=== PATIENT | female | born 1990 | race Two or more races ===

== ENCOUNTER 2018-08-17 08:12 | Emergency (ER) | payer MEDICAID ==
[~2018-08-17] VITALS: Ht 157.5 cm; Wt 92.5 kg
[2018-08-17 08:40] VITALS: BP 130/81
== END 2018-08-17 08:41 | disposition left against medical advice (07) ==
LOC: ER 08:12
DX: M54.5 Low back pain (principal); Z53.21 Procedure and treatment not carried out due to patient leaving prior to being seen by health care provider

== ENCOUNTER 2019-02-27 18:17 | Observation (INO) | payer MEDICAID | END 2019-02-27 19:44 | disposition home or self-care (01) | DRG 566 | LOC: LDRP 18:17 | PROVIDERS: ADMIT Obstetrics & Gynecology; ATTEND Obstetrics & Gynecology | DX: O42.92 Full-term premature rupture of membranes, unspecified as to length of time between rupture and onset of labor (principal); O47.03 False labor before 37 completed weeks of gestation, third trimester; Z3A.35 35 weeks gestation of pregnancy | CPT/HCPCS: 59025; 81002; 84112; G0378 ==

== ENCOUNTER 2019-03-14 14:10 | Observation (INO) | payer MEDICAID ==
[2019-03-14] MEDS ORDERED: PRENTAB40 PO (14:58)
== END 2019-03-14 15:47 | disposition home or self-care (01) | DRG 566 ==
LOC: LDRP 14:10
PROVIDERS: ADMIT Obstetrics & Gynecology; ATTEND Obstetrics & Gynecology
DX: O62.9 Abnormality of forces of labor, unspecified (principal); O26.893 Other specified pregnancy related conditions, third trimester; R11.0 Nausea; Z3A.37 37 weeks gestation of pregnancy
CPT/HCPCS: 59025; 81002; 84112; G0378

== ENCOUNTER 2019-03-27 11:05 | Observation (INO) | payer MEDICAID ==
[~2019-03-27 11:05] MED LIST: PRENTAB40 PO
[2019-03-27 12:03] LABS: Basophils # (auto) 0 uL; Eosinophils # (auto) 0.1 uL; Eosinophils % (auto) 0.7 % (0.0-7.0); Mean Corpuscular Hemoglobin 24.9 pg (28.0-32.0); Monocytes # (auto) 0.3 uL
[2019-03-27 12:05] LABS: Basophils % (auto) 0.2 % (0.0-2.0); Lymphocytes # (auto) 1.5 uL; Lymphocytes % (auto) 17.9 % (10.0-50.0); Mean Corpuscular Hgb Conc. 32.3 g/dL (32.0-36.0); Mean Corpuscular Volume 77.3 fL (80.0-100.0); Monocytes % (auto) 3.3 % (0.0-12.0); Neutrophils # (auto) 6.5 uL; Neutrophils % (auto) 77.9 % (37.0-80.0); Platelet Count (auto) 305 10^3/uL (140-450); Red Cell Distribution Width 15.4 % (11.8-14.3); White Blood Cell 8.3 10^3/uL (4.4-10.8)
[2019-03-27 12:38] LABS: Alcohol, Urine < 3.0 mg/dL (0-5); Amphetamine Screen, Urine NEGATIVE (NEGATIVE); Barbiturate Scree,Urine NEGATIVE (NEGATIVE); Benzodiazephine Screen, Urine NEGATIVE (NEGATIVE); Cocaine Screen, Urine NEGATIVE (NEGATIVE); Opiate Scree,Urine NEGATIVE (NEGATIVE); Phencyclidine Screen, Urine NEGATIVE (NEGATIVE)
[2019-03-27 12:41] LABS: Cannabinoid Screen, Urine POSITIVE (NEGATIVE)
[2019-03-28 06:06] LABS: RPR Non Reactive (Non Reactive)
== END 2019-03-27 12:10 | disposition home or self-care (01) | DRG 566 ==
LOC: LDRP 11:05
PROVIDERS: ADMIT Specialist; ATTEND Specialist
DX: O99.810 Abnormal glucose complicating pregnancy (principal); O99.323 Drug use complicating pregnancy, third trimester; F19.10 Other psychoactive substance abuse, uncomplicated; Z91.19 Patient's noncompliance with other medical treatment and regimen; Z3A.39 39 weeks gestation of pregnancy
CPT/HCPCS: 36415; 59025; 76818; 80307; 81002; 83036; 84112; 85025; 86592; G0378

== ENCOUNTER 2019-03-31 10:04 | Observation (INO) | payer MEDICAID | END 2019-03-31 12:00 | disposition home or self-care (01) | DRG 566 | LOC: LDRP 10:04 | PROVIDERS: ADMIT Obstetrics & Gynecology; ATTEND Obstetrics & Gynecology | DX: O36.63X0 Maternal care for excessive fetal growth, third trimester, not applicable or unspecified (principal); E66.01 Morbid (severe) obesity due to excess calories; O48.0 Post-term pregnancy; O99.213 Obesity complicating pregnancy, third trimester; Z91.19 Patient's noncompliance with other medical treatment and regimen; Z3A.40 40 weeks gestation of pregnancy | CPT/HCPCS: 59025; 76815; 76818; 81002; G0378 ==

== ENCOUNTER 2019-04-01 09:05 | Inpatient (IN) | payer MEDICAID ==
[2019-04-01] VITALS (12 sets, daily range): BP systolic 119–149; BP diastolic 64–96
[~2019-04-01] VITALS: Ht 157.5 cm; Wt 117.9 kg
[2019-04-01] MEDS ORDERED: MORPHINE SULF INJ 2 MG/ML SYRINGE 1ML IV PRN (09:45)
[2019-04-01] MEDS ORDERED: NITROGLYCERIN 0.4 MG SL TAB SL PRN (09:45)
[2019-04-01 10:35] LABS: Urine Bacteria FEW /hpf (None Seen); Urine Blood Negative /uL (Negative); Urine Specific Gravity 1.018 (1.001-1.035); Urine WBC 14 /hpf (0 - 5)
[2019-04-01 10:41] LABS: Basophils # (auto) 0 uL; Lymphocytes # (auto) 1.8 uL; Monocytes # (auto) 0.4 uL
[2019-04-01 10:44] LABS: Basophils % (auto) 0.2 % (0.0-2.0); Eosinophils # (auto) 0 uL; Eosinophils % (auto) 0.5 % (0.0-7.0); Hematocrit 32.9 % (36.0-46.0); Lymphocytes % (auto) 20.6 % (10.0-50.0); Mean Corpuscular Hemoglobin 25.5 pg (28.0-32.0); Mean Corpuscular Hgb Conc. 33.5 g/dL (32.0-36.0); Monocytes % (auto) 4.3 % (0.0-12.0); Neutrophils # (auto) 6.3 uL; Neutrophils % (auto) 74.4 % (37.0-80.0); Platelet Count (auto) 304 10^3/uL (140-450); Red Blood Cells 4.33 10^6/uL (4.0-5.20); Red Cell Distribution Width 15.3 % (11.8-14.3); White Blood Cell 8.5 10^3/uL (4.4-10.8)
[2019-04-01 10:47] LABS: INR 0.99 (0.9-1.15); Partial Thromboplastin Time 28.7 sec (23.64-32.05)
[2019-04-01 10:51] LABS: Calcium 8.2 mg/dL (8.5-10.1)
[2019-04-01 10:55] LABS: Albumin 2.3 g/dL (3.4-5.0); BUN/Creatinine Ratio 15.2
[2019-04-01 10:57] LABS: Bilirubin, Total 0.3 mg/dL (0.2-1.0); Total Protein 6.2 g/dL (6.4-8.2)
[2019-04-01] MEDS: LACTATED RINGER'S 1,000 ML IV SCH ×2 (12:30→22:14)
[2019-04-01 12:55] LABS: Alcohol, Urine < 3.0 mg/dL (0-5); Amphetamine Screen, Urine NEGATIVE (NEGATIVE); Barbiturate Scree,Urine NEGATIVE (NEGATIVE); Benzodiazephine Screen, Urine NEGATIVE (NEGATIVE); Cannabinoid Screen, Urine NEGATIVE (NEGATIVE); Cocaine Screen, Urine NEGATIVE (NEGATIVE); Opiate Scree,Urine NEGATIVE (NEGATIVE); Phencyclidine Screen, Urine NEGATIVE (NEGATIVE)
[2019-04-01] MEDS ORDERED: ONDANSETRON HCL 4 MG/2 ML VIAL IV PRN ×2 (13:45→14:45)
[2019-04-01] MEDS ORDERED: ceFAZolin 1GM/50ML 50 ML IV SCH (13:45)
[2019-04-01] MEDS ORDERED: fentaNYL CITRATE 100 MCG/2 ML VL ONE (13:50)
[2019-04-01] MEDS ORDERED: ePHEDrine SULFATE 50 MG/ML AMP IV PRN (14:45)
[2019-04-01] MEDS ORDERED: hydrALAZINE HCL 20 MG/ML VL IV PRN (14:45)
[2019-04-01] MEDS ORDERED: HYDROmorphone HCL 2 MG/ML VL IV PRN (14:45)
--- NOTE | 2019-04-01 16:05 | NUR ---
Post Op for LDRP: Received patient from PACU via bed to room 108 A. Patient A/A/Ox4, abdominal binder and bilateral SCD's are in place, IV fluids placed on pump and infusing per order, incisional site dressing clean/dry/intact and Lazo Catheter to gravity draining clear yellow urine. Incentive Spirometer at bedside and instruction on proper use with return demonstration done by patient.
--- NOTE | 2019-04-01 16:30 | NUR ---
Teaching: Reviewed information in [facility] [employer] booklet with patient. Discussed benefits of and risks associated with not . Discussed different positions, proper latch, feeding cues, and baby-led . Provided information of medication side effects related to . All questions and concerns addressed at this time. Patient verbalized understanding of information.
[2019-04-01] MEDS: MORPHINE SULFATE 4 MG/ML SYR/VIAL IV PRN ×2 (17:41→22:11)
[2019-04-01] MEDS: LACT. RINGERS/OXYTOCIN 20UNITS 1,000 ML IV SCH ×2 (17:46→20:22)
[2019-04-01] MEDS ORDERED: ACETAMINOPHEN IV 1000 MG/100ML (10MG/ML) IV ONE (19:00)
--- NOTE | 2019-04-01 19:00 | NUR ---
Opening Shift Note Patient A/A/Ox4, Reports pain 8/10, pain medication was just given not due at this time. Abdominal binder in place, incisional site dressing clean/dry/intact no new drainage noted at this time. Bilateral SCD's are in place, IV fluids placed on pump and infusing per order. Lazo Catheter to gravity draining clear yellow urine. Incentive Spirometer at bedside. Instructed on POC and to call for assist PRN, will continue to monitor for changes PRN.
[2019-04-01] MEDS ORDERED: ACETAMINOPHEN IV 100 ML IV ONE (19:31)
[2019-04-01 19:46] LABS: Basophils # (auto) 0 uL; Basophils % (auto) 0.3 % (0.0-2.0); Eosinophils # (auto) 0 uL; Eosinophils % (auto) 0.2 % (0.0-7.0); Red Blood Cells 4.39 10^6/uL (4.0-5.20); Red Cell Distribution Width 15.1 % (11.8-14.3)
[2019-04-01 19:51] LABS: Hematocrit 33.7 % (36.0-46.0); Hemoglobin 10.9 g/dL (12.2-16.2); Lymphocytes # (auto) 1.7 uL; Lymphocytes % (auto) 13.6 % (10.0-50.0); Mean Corpuscular Hemoglobin 24.9 pg (28.0-32.0); Mean Corpuscular Hgb Conc. 32.4 g/dL (32.0-36.0); Mean Corpuscular Volume 76.8 fL (80.0-100.0); Monocytes # (auto) 0.4 uL; Monocytes % (auto) 3.4 % (0.0-12.0); Neutrophils # (auto) 10.3 uL; Neutrophils % (auto) 82.5 % (37.0-80.0); Platelet Count (auto) 308 10^3/uL (140-450); White Blood Cell 12.5 10^3/uL (4.4-10.8)
[2019-04-01] MEDS: ceFAZolin 1GM/50ML 50 ML IV SCH (22:04)
--- NOTE | 2019-04-01 23:54 | NUR ---
Pain Call placed to Je Bedolla regarding patient crying in bed despite recent pain medication given, at [address] and 2210 morphine. Patient not tolerating pain requesting additional pain medication. Verbalized understanding, orders received to give once 0.5 mg of Dilaudid IVP.
[2019-04-02] VITALS (10 sets, daily range): BP systolic 106–143; BP diastolic 66–89
[2019-04-02] MEDS ORDERED: HYDROmorphone HCL 2 MG/ML VL IV ONE
[2019-04-02] MEDS: LACTATED RINGER'S 1,000 ML IV SCH ×3 (01:45→17:21)
[2019-04-02] MEDS: MORPHINE SULFATE 4 MG/ML SYR/VIAL IV PRN ×2 (02:18→05:52)
[2019-04-02] MEDS: LACT. RINGERS/OXYTOCIN 20UNITS 1,000 ML IV SCH (03:02)
--- NOTE | 2019-04-02 03:45 | NUR ---
Ambulation: Pericare and teaching provided to patient, gown and pad changed. Patient OOB with standby assistance by two RN's. Patient ambulated to bedside chair steady gait. Complete bed linen changed. Patient remains in chair no S/S distress noted.
--- NOTE | 2019-04-02 03:53 | NUR ---
Spoke with Je Bedolla CNM regarding trending Urine output to Lazo catheter: 30-45 ml/hr the past few hours. Patient on LR at 125mls/hr. Verbalized understanding orders received to Bolus 300ml.
[2019-04-02 05:06] LABS: RPR Non Reactive (Non Reactive)
[2019-04-02] MEDS: ceFAZolin 1GM/50ML 50 ML IV SCH ×2 (05:53→14:40)
[2019-04-02] MEDS ORDERED: HYDROmorphone HCL 2 MG/ML VL IV PRN (06:30)
[2019-04-02] MEDS ORDERED: ACETAMINOPHEN IV 1000 MG/100ML (10MG/ML) IV ONE (08:15)
[2019-04-02 08:24] LABS: Basophils # (auto) 0 uL; Basophils % (auto) 0.2 % (0.0-2.0); Eosinophils # (auto) 0 uL; Eosinophils % (auto) 0.2 % (0.0-7.0); Hemoglobin 10.6 g/dL (12.2-16.2); Lymphocytes # (auto) 1.1 uL; Monocytes # (auto) 0.4 uL; Neutrophils % (auto) 83.9 % (37.0-80.0)
[2019-04-02 08:27] LABS: Hematocrit 32.4 % (36.0-46.0); Lymphocytes % (auto) 11.1 % (10.0-50.0); Mean Corpuscular Hgb Conc. 32.8 g/dL (32.0-36.0); Mean Corpuscular Volume 76.1 fL (80.0-100.0); Monocytes % (auto) 4.6 % (0.0-12.0); Neutrophils # (auto) 8.1 uL; Platelet Count (auto) 288 10^3/uL (140-450); Red Blood Cells 4.26 10^6/uL (4.0-5.20); Red Cell Distribution Width 15.1 % (11.8-14.3); White Blood Cell 9.6 10^3/uL (4.4-10.8)
[2019-04-02] MEDS ORDERED: HYDROcodone-ACET 5/325MG TAB PO PRN (08:30)
[2019-04-02] MEDS ORDERED: BISACODYL 10 MG RECT SUPP PR PRN (08:30)
[2019-04-02] MEDS ORDERED: ACETAMINOPHEN IV 100 ML IV ONE (09:35)
--- NOTE | 2019-04-02 10:00 | NUR ---
Ambulation: Patient OOB with assistance by RN and hydrologic engineer. Patient ambulated to bathroom with assistance from this RN and Muriel Marinelli, hydrologic engineer. Patient able to void 300 ml, passes BM x 1. Pericare teaching provided to pt, pt unable to return demonstration at this time. Pt states "I can't reach myself to clean." Clean gown provided and bed linen changed. Patient ambulated back to bed with assistance from RN and hydrologic engineer, and assisted pt back into bed, pt states "I can't lift my legs up" Pt positioned to comfort with pillows x 3.
[2019-04-02] MEDS: DOCUSATE CALCIUM 240 MG CAP PO SCH (10:07)
[2019-04-02] MEDS: FERROUS SULFATE 325 MG TAB PO SCH ×2 (10:07→21:44)
[2019-04-02] MEDS: DOCUSATE SOD 100 MG CAP PO SCH ×2 (10:07→21:45)
[2019-04-02] MEDS ORDERED: SIMETHICONE 80 MG CHEWABLE TABLET PO SCH (12:00)
[2019-04-02] MEDS: HYDROcodone-ACET 5/325MG TAB PO PRN ×3 (12:56→22:18)
--- NOTE | 2019-04-02 15:30 | NUR ---
Pt pulls emergency call light Pt up to bathroom, pt pulls emergency light states "I just can't wipe myself in the back. It just hurts too much." Assisted pt to clean herself, provided standby assistance to pt to get back in bed. Educated pt regarding the importance of ambulation, IS use and getting up out of bed more frequently to care for herself and her . Pt verbalizes understanding of teaching.
[2019-04-02] MEDS: IBUPROFEN 800 MG TAB PO PRN (15:47)
--- NOTE | 2019-04-02 21:03 | NUR ---
IV Removal IV right wrist 18g discontinued with clean sterile technique, catheter fully intact. Pressure dressing applied to site. Patient tolerated well. Signed: 04/02/19 at 2315 by SN Janelle <Co-Signature Required> Co-Signed: 04/02/19 at 2315 by DEE SPARKS RN RN
[2019-04-02] MEDS: SIMETHICONE 80 MG CHEWABLE TABLET PO SCH (21:44)
[2019-04-03 02:50] VITALS: BP 109/71
[2019-04-03] MEDS: SIMETHICONE 80 MG CHEWABLE TABLET PO SCH ×4 (05:44→22:20)
[2019-04-03] MEDS: IBUPROFEN 800 MG TAB PO PRN ×3 (05:44→22:20)
--- NOTE | 2019-04-03 06:26 | NUR ---
Report given to Sai Chavez RN
[2019-04-03 06:45] VITALS: BP 125/76
[2019-04-03] MEDS: HYDROcodone-ACET 5/325MG TAB PO PRN ×2 (07:53→16:57)
[2019-04-03] MEDS: LACTATED RINGER'S 1,000 ML IV SCH (09:45)
[2019-04-03] MEDS: DOCUSATE CALCIUM 240 MG CAP PO SCH (10:00)
[2019-04-03] MEDS: FERROUS SULFATE 325 MG TAB PO SCH ×2 (10:00→22:20)
[2019-04-03] MEDS: DOCUSATE SOD 100 MG CAP PO SCH ×2 (10:00→22:19)
[2019-04-03 11:00] VITALS: BP 123/76
[2019-04-03] MEDS ORDERED: INFLUENZA QUAD 2019-2020 0.5ml SYRG IM ONE (13:45)
[2019-04-03] MEDS ORDERED: TETANUS-DIPTH-ACEL PERTUSSIS 0.5ML SYRG IM ONE (13:45)
[2019-04-03 15:00] VITALS: BP 125/81
[2019-04-03 18:47] VITALS: BP 130/84
[2019-04-03 23:00] VITALS: BP 132/88
[2019-04-04] MEDS: HYDROcodone-ACET 5/325MG TAB PO PRN (01:20)
[2019-04-04] MEDS: LACTATED RINGER'S 1,000 ML IV SCH (01:26)
[2019-04-04 03:00] VITALS: BP 103/61
[2019-04-04] MEDS: SIMETHICONE 80 MG CHEWABLE TABLET PO SCH (05:20)
[2019-04-04 07:00] VITALS: BP 131/83
--- NOTE | 2019-04-04 08:10 | NUR ---
Discharge: Discharge instructions given as ordered. Pt encouraged to follow up with GEOTECHNICAL FIELD TECHNICIAN as instructed. All questions and concerns addressed. Patient verbalized understanding. Medication reconciliation completed and copy given to patient. All required/requested vaccines given and copies of vaccinations given to patient. Patient encouraged to prepare to depart unit.
--- NOTE | 2019-04-04 08:40 | NUR ---
Discharge: Patient taken to vehicle via ambulation with all personal belongings, accompanied by staff and family member. No distress noted at time of departure, no adverse changes in status since initial assessment.
[2019-04-04 09:00] VITALS: BP 124/86
== END 2019-04-04 08:40 | disposition home or self-care (01) | DRG 540 ==
LOC: LDRP 09:05
PROVIDERS: ADMIT Obstetrics & Gynecology; ATTEND Obstetrics & Gynecology
PROC: 10D00Z1 Extraction of Products of Conception, Low, Open Approach (ICD-10-PCS; principal; 2019-04-01 13:50)
PROC: 3E0234Z Introduction of Serum, Toxoid and Vaccine into Muscle, Percutaneous Approach (ICD-10-PCS; 2019-04-03)
PROC: 3E02340 Introduction of Influenza Vaccine into Muscle, Percutaneous Approach (ICD-10-PCS; 2019-04-03)
DX: O69.81X0 Labor and delivery complicated by cord around neck, without compression, not applicable or unspecified (principal); E66.01 Morbid (severe) obesity due to excess calories; O36.63X0 Maternal care for excessive fetal growth, third trimester, not applicable or unspecified; Z37.0 Single live birth; Z23 Encounter for immunization; O99.214 Obesity complicating childbirth; Z3A.40 40 weeks gestation of pregnancy
CPT/HCPCS: 36415; 59025; 80053; 80307; 81001; 84112; 85025; 85610; 85730; 86592; 86850; 86900; 86901; 90472; 90715; 94760; 96361; 96366; 96372; 96375; G0378; J0131; J0690

== ENCOUNTER 2020-10-29 12:00 | Observation (INO) | payer MEDICAID | END 2020-10-29 13:00 | disposition home or self-care (01) | LOC: LDRP 12:00 | PROVIDERS: ADMIT Obstetrics & Gynecology; ATTEND Obstetrics & Gynecology | DX: O26.893 Other specified pregnancy related conditions, third trimester (principal); R42 Dizziness and giddiness; R06.02 Shortness of breath; O62.9 Abnormality of forces of labor, unspecified; O34.219 Maternal care for unspecified type scar from previous cesarean delivery; Z3A.38 38 weeks gestation of pregnancy | CPT/HCPCS: 59025; 81002; 94760; G0378 ==

== ENCOUNTER 2020-11-02 04:10 | Inpatient (IN) | payer MEDICAID ==
[~2020-11-02] VITALS: Ht 160 cm; Wt 118.0 kg
[2020-11-02] VITALS (17 sets, daily range): BP systolic 102–127; BP diastolic 49–80
[2020-11-02] MEDS ORDERED: ceFAZolin 1GM/50ML 50 ML IV ONE (04:15)
[2020-11-02] MEDS ORDERED: LACTATED RINGER'S 1,000 ML IV ONE (04:15)
[2020-11-02] MEDS ORDERED: LACTATED RINGER'S 1,000 ML IV SCH (04:15)
[2020-11-02 05:08] LABS: Eosinophils # (auto) 0.1 10 ^3/uL (0-0.8); Eosinophils % (auto) 0.8 % (0.0-7.0); Mean Corpuscular Hemoglobin 24.4 pg (28.0-32.0); Monocytes # (auto) 0.4 10 ^3/uL (0-1.3); Red Blood Cells 4.98 10^6/uL (4.0-5.20); White Blood Cell 11.3 10^3/uL (4.4-10.8)
[2020-11-02 05:10] LABS: Basophils # (auto) 0.1 10 ^3/uL (0-0.2); Basophils % (auto) 0.6 % (0.0-2.0); Hematocrit 37.8 % (36.0-46.0); Hemoglobin 12.1 g/dL (12.2-16.2); Lymphocytes # (auto) 2.3 10 ^3/uL (0.4-5.4); Lymphocytes % (auto) 20.4 % (10.0-50.0); Monocytes % (auto) 3.6 % (0.0-12.0); Neutrophils # (auto) 8.5 10 ^3/uL (1.6-8.6); Neutrophils % (auto) 74.6 % (37.0-80.0); Red Cell Distribution Width 15.7 % (11.8-14.3)
[2020-11-02 05:24] LABS: INR 0.97 (0.9-1.15); Partial Thromboplastin Time 26.8 sec (23.0-31.2)
[2020-11-02 05:25] LABS: Albumin 2.5 g/dL (3.4-5.0); Calcium 8.8 mg/dL (8.5-10.1); Potassium 3.8 mmol/L (3.5-5.1)
[2020-11-02 05:26] LABS: Amphetamine Screen, Urine NEGATIVE (NEGATIVE); Barbiturate Scree,Urine NEGATIVE (NEGATIVE); Benzodiazephine Screen, Urine NEGATIVE (NEGATIVE); Cannabinoid Screen, Urine POSITIVE (NEGATIVE); Cocaine Screen, Urine NEGATIVE (NEGATIVE); Opiate Scree,Urine NEGATIVE (NEGATIVE); Phencyclidine Screen, Urine NEGATIVE (NEGATIVE)
[2020-11-02 05:27] LABS: Urine Bacteria FEW /hpf (None Seen); Urine Blood TRACE /uL (Negative); Urine Hyaline Cast FEW /lpf (0 - 2); Urine Mucus FEW (None Seen); Urine Specific Gravity 1.019 (1.001-1.035); Urine WBC 31 /hpf (0 - 5); Urine WBC Clumps PRESENT /hpf (None Seen)
[2020-11-02 05:30] LABS: BUN/Creatinine Ratio 23.2; Bilirubin, Total 0.2 mg/dL (0.2-1.0); Total Protein 7.3 g/dL (6.4-8.2)
[2020-11-02] MEDS ORDERED: TETRACAINE 1% INJ 2 ML VIAL IJ ONE (07:20)
[2020-11-02] MEDS ORDERED: fentaNYL CITRATE 100 MCG/2 ML VL ONE (07:28)
[2020-11-02] MEDS ORDERED: MORPHINE SULF(PF) 0.5MG/ML 10ML VIAL ONE (07:28)
[2020-11-02] MEDS ORDERED: LACT. RINGERS/OXYTOCIN 20UNITS 1,000 ML IV ONE (07:45)
[2020-11-02] MEDS ORDERED: MORPHINE SULFATE 4 MG/ML SYR/VIAL IV PRN ×2 (07:45→09:45)
[2020-11-02] MEDS ORDERED: ONDANSETRON HCL 4 MG/2 ML VIAL IV PRN (07:45)
[2020-11-02] MEDS ORDERED: ONDANSETRON HCL 4 MG/2 ML VIAL ONE (08:26)
[2020-11-02] MEDS ORDERED: ePHEDrine SULFATE 50 MG/ML AMP ONE (08:26)
[2020-11-02] MEDS ORDERED: oxyTOCIN 10 UNIT/ML 10ML VIAL ONE (08:26)
[2020-11-02] MEDS ORDERED: ceFAZolin 1GM VL ONE (08:27)
[2020-11-02] MEDS ORDERED: NALOXONE HCL 0.4 MG/ML VIAL IV PRN (09:00)
[2020-11-02] MEDS ORDERED: HYDROmorphone HCL 2 MG/ML VL IV PRN ×2 (09:00→09:45)
[2020-11-02] MEDS ORDERED: NALBUPHINE HCL 10 MG/1ml INJECTION SUBCUT ONE (09:00)
[2020-11-02] MEDS ORDERED: diphenhdrAMINE HCL 50 MG/1 ML VL IV PRN (09:00)
[2020-11-02] MEDS ORDERED: DexAMETHasone SOD PHOS 10MG/1ML VIAL INJ IV PRN (09:00)
[2020-11-02] MEDS ORDERED: KETOROLAC TROMETH 30 MG/ML 1ML VIAL IV PRN (09:00)
[2020-11-02] MEDS ORDERED: ACETAMINOPHEN IV 1000 MG/100ML (10MG/ML) IV ONE (10:00)
[2020-11-02] MEDS: ONDANSETRON HCL 4 MG/2 ML VIAL IV PRN ×3 (11:36→20:21)
[2020-11-02] MEDS: ceFAZolin 1GM/50ML 50 ML IV SCH ×2 (15:34→22:58)
[2020-11-02] MEDS: LACTATED RINGER'S 1,000 ML IV SCH ×2 (15:36→22:58)
[2020-11-02 21:55] LABS: Basophils # (auto) 0 10 ^3/uL (0-0.2); Eosinophils # (auto) 0 10 ^3/uL (0-0.8); Lymphocytes % (auto) 13.5 % (10.0-50.0); Mean Corpuscular Hgb Conc. 32.4 g/dL (32.0-36.0); Monocytes # (auto) 0.3 10 ^3/uL (0-1.3)
[2020-11-02 21:57] LABS: Basophils % (auto) 0.1 % (0.0-2.0); Eosinophils % (auto) 0.4 % (0.0-7.0); Hematocrit 33.9 % (36.0-46.0); Lymphocytes # (auto) 1.5 10 ^3/uL (0.4-5.4); Mean Corpuscular Hemoglobin 24.5 pg (28.0-32.0); Mean Corpuscular Volume 75.7 fL (80.0-100.0); Monocytes % (auto) 2.9 % (0.0-12.0); Neutrophils % (auto) 83.1 % (37.0-80.0); Red Blood Cells 4.47 10^6/uL (4.0-5.20); Red Cell Distribution Width 15.8 % (11.8-14.3); White Blood Cell 10.8 10^3/uL (4.4-10.8)
[2020-11-03] VITALS (10 sets, daily range): BP systolic 105–120; BP diastolic 50–84
[2020-11-03] MEDS ORDERED: ACETAMINOPHEN IV 1000 MG/100ML (10MG/ML) IV ONE (04:30)
[2020-11-03 06:30] LABS: Basophils # (auto) 0 10 ^3/uL (0-0.2); Eosinophils # (auto) 0.1 10 ^3/uL (0-0.8); Eosinophils % (auto) 1.1 % (0.0-7.0); Hemoglobin 10.9 g/dL (12.2-16.2); Red Cell Distribution Width 15.5 % (11.8-14.3)
[2020-11-03 06:32] LABS: Basophils % (auto) 0.4 % (0.0-2.0); Lymphocytes # (auto) 1.5 10 ^3/uL (0.4-5.4); Lymphocytes % (auto) 15.1 % (10.0-50.0); Mean Corpuscular Hemoglobin 24.7 pg (28.0-32.0); Mean Corpuscular Hgb Conc. 33.1 g/dL (32.0-36.0); Mean Corpuscular Volume 74.7 fL (80.0-100.0); Monocytes # (auto) 0.4 10 ^3/uL (0-1.3); Monocytes % (auto) 4.2 % (0.0-12.0); Neutrophils # (auto) 7.7 10 ^3/uL (1.6-8.6); Neutrophils % (auto) 79.2 % (37.0-80.0); Red Blood Cells 4.42 10^6/uL (4.0-5.20); White Blood Cell 9.7 10^3/uL (4.4-10.8)
[2020-11-03 07:07] LABS: RPR Non Reactive (Non Reactive)
[2020-11-03] MEDS: ceFAZolin 1GM/50ML 50 ML IV SCH ×2 (08:13→16:12)
[2020-11-03] MEDS ORDERED: HYDROcodone-ACET 5/325MG TAB PO PRN (09:15)
[2020-11-03] MEDS ORDERED: BISACODYL 10 MG RECT SUPP PR PRN (09:15)
[2020-11-03] MEDS: HYDROcodone-ACET 5/325MG TAB PO PRN ×2 (11:15→19:37)
[2020-11-03] MEDS: DOCUSATE SOD 100 MG CAP PO SCH ×2 (11:15→22:01)
[2020-11-03] MEDS: SIMETHICONE 80 MG CHEWABLE TABLET PO SCH ×3 (11:16→23:07)
[2020-11-03] MEDS: IBUPROFEN 800 MG TAB PO PRN (16:15)
[2020-11-04] MEDS: ceFAZolin 1GM/50ML 50 ML IV SCH ×3 (00:16→17:24)
[2020-11-04 03:12] VITALS: BP 93/69
[2020-11-04] MEDS: IBUPROFEN 800 MG TAB PO PRN ×2 (03:22→15:56)
[2020-11-04 07:00] VITALS: BP 125/86
[2020-11-04] MEDS: SIMETHICONE 80 MG CHEWABLE TABLET PO SCH ×4 (09:02→22:04)
[2020-11-04] MEDS: DOCUSATE SOD 100 MG CAP PO SCH ×2 (09:49→22:03)
[2020-11-04 11:16] VITALS: BP 122/83
[2020-11-04 15:00] VITALS: BP 119/58
[2020-11-04] MEDS: HYDROcodone-ACET 5/325MG TAB PO PRN (15:56)
[2020-11-04 19:30] VITALS: BP 131/66
[2020-11-04] MEDS ORDERED: guaiFENesin-DM 100/10mg/5ml SYR PO PRN (20:15)
[2020-11-04] MEDS ORDERED: guaiFENesin-DM 100/10mg/5ml SYR ONE (20:23)
[2020-11-04 23:00] VITALS: BP 121/79
[2020-11-05] MEDS: ceFAZolin 1GM/50ML 50 ML IV SCH ×2 (01:14→09:50)
[2020-11-05] MEDS: HYDROcodone-ACET 5/325MG TAB PO PRN (02:37)
[2020-11-05 03:00] VITALS: BP 129/90
[2020-11-05] MEDS: SIMETHICONE 80 MG CHEWABLE TABLET PO SCH (06:00)
[2020-11-05 07:30] VITALS: BP 113/68
[2020-11-05] MEDS: IBUPROFEN 800 MG TAB PO PRN (08:06)
[2020-11-05] MEDS: DOCUSATE SOD 100 MG CAP PO SCH (09:50)
== END 2020-11-05 10:25 | disposition home or self-care (01) | DRG 540 ==
LOC: LDRP 04:10
PROVIDERS: ADMIT Obstetrics & Gynecology; ATTEND Obstetrics & Gynecology
PROC: 0UL70CZ Occlusion of Bilateral Fallopian Tubes with Extraluminal Device, Open Approach (ICD-10-PCS; 2020-11-02)
PROC: 10D00Z1 Extraction of Products of Conception, Low, Open Approach (ICD-10-PCS; principal; 2020-11-02 07:28)
DX: O34.211 Maternal care for low transverse scar from previous cesarean delivery (principal); E66.01 Morbid (severe) obesity due to excess calories; O99.214 Obesity complicating childbirth; N73.6 Female pelvic peritoneal adhesions (postinfective); O99.892 Other specified diseases and conditions complicating childbirth; Z30.2 Encounter for sterilization; Z37.0 Single live birth; Z3A.39 39 weeks gestation of pregnancy
CPT/HCPCS: 36415; 59025; 80053; 80307; 81001; 81002; 85025; 85610; 85730; 86592; 86850; 86900; 86901; 94760; 96360; 96361; 96365; 96366; 96374; G0378; J0131; J0690; J2405; J2590

== ENCOUNTER 2022-06-26 09:42 | Emergency (ER) | payer MEDICAID ==
[~2022-06-26] VITALS: Ht 160 cm; Wt 124.0 kg
[2022-06-26] MEDS ORDERED: SODIUM CHLORIDE 0.9% 1,000 ML IVB ONE (10:30)
[2022-06-26] MEDS ORDERED: ONDANSETRON HCL 4 MG/2 ML VIAL IV ONE (10:30)
[2022-06-26] MEDS ORDERED: KETOROLAC TROMETH 30 MG/ML 1ML VIAL IV ONE (10:30)
[2022-06-26 11:12] LABS: Basophils # (auto) 0.1 10 ^3/uL (0-0.2); Basophils % (auto) 0.6 % (0.0-2.0); Eosinophils # (auto) 0.3 10 ^3/uL (0-0.8); Eosinophils % (auto) 3.3 % (0.0-7.0); Hematocrit 43.5 % (36.0-46.0); Hemoglobin 14.7 g/dL (12.2-16.2); Lymphocytes # (auto) 2.4 10 ^3/uL (0.4-5.4); Lymphocytes % (auto) 23.4 % (10.0-50.0); Mean Corpuscular Hemoglobin 27.8 pg (28.0-32.0); Mean Corpuscular Hgb Conc. 33.9 g/dL (32.0-36.0); Mean Corpuscular Volume 82.3 fL (80.0-100.0); Monocytes # (auto) 0.4 10 ^3/uL (0-1.3); Monocytes % (auto) 3.5 % (0.0-12.0); Neutrophils # (auto) 7.2 10 ^3/uL (1.6-8.6); Neutrophils % (auto) 69.2 % (37.0-80.0); Nucleated Red Blood Cells % 0.1 %; Red Blood Cells 5.29 10^6/uL (4.0-5.20); Red Cell Distribution Width 13.3 % (11.8-14.3); White Blood Cell 10.4 10^3/uL (4.4-10.8)
[2022-06-26 11:19] LABS: Albumin 3.8 g/dL (3.4-5.0); BUN/Creatinine Ratio 15.7; Calcium 9.8 mg/dL (8.5-10.1); Potassium 3.9 mmol/L (3.5-5.1)
[2022-06-26 11:22] LABS: Bilirubin, Total 0.5 mg/dL (0.2-1.0); Total Protein 8.8 g/dL (6.4-8.2)
[2022-06-26 12:34] LABS: Urine Bacteria NONE SEEN /hpf (None Seen); Urine Blood Negative /uL (Negative); Urine Mucus FEW (None Seen); Urine Specific Gravity 1.023 (1.001-1.035); Urine WBC 4 /hpf (0 - 5)
[2022-06-26 13:00] VITALS: BP 149/89
[2022-06-26] MEDS ORDERED: TRAM-297 PO (13:17)
== END 2022-06-26 13:27 | disposition home or self-care (01) ==
LOC: ER 09:42
DX: R10.9 Unspecified abdominal pain (principal); R05.9 Cough, unspecified; R11.0 Nausea; Z90.49 Acquired absence of other specified parts of digestive tract; Z98.890 Other specified postprocedural states; Z98.51 Tubal ligation status
CPT/HCPCS: 36415; 74176; 80053; 81001; 85025; 96361; 96374; 96375; 99285; J1885; J2405; J7030

== ENCOUNTER 2023-02-08 20:58 | Emergency (ER) | payer SELFPAY ==
[~2023-02-08] VITALS: Ht 160 cm; Wt 109.0 kg
[~2023-02-08 20:58] MED LIST changes: +TRAM-297 PO
[2023-02-08] MEDS ORDERED: diphenhdrAMINE HCL 25 MG CAP PO ONE (21:30)
[2023-02-08] MEDS ORDERED: DexAMETHasone SOD PHOS 10MG/1ML VIAL INJ IM ONE (21:30)
[2023-02-08] MEDS ORDERED: cloNIDine HCL 0.1 MG TAB PO ONE (21:30)
[2023-02-08 22:05] VITALS: BP 167/99; PULSE 77; RESP 17; O2SAT 95
[2023-02-08] MEDS ORDERED: CLIN300C70 PO (23:11)
[2023-02-08] MEDS ORDERED: HYDR-3682 PO (23:11)
[2023-02-08] MEDS ORDERED: DIPH25CA66 PO (23:11)
[2023-02-08] MEDS ORDERED: hydrOXYzine 25 MG TAB or CAP PO ONE (23:15)
== END 2023-02-08 23:19 | disposition home or self-care (01) ==
LOC: ER 21:00
DX: T50.905A Adverse effect of unspecified drugs, medicaments and biological substances, initial encounter (principal); L50.0 Allergic urticaria; F12.90 Cannabis use, unspecified, uncomplicated; Z88.0 Allergy status to penicillin; Z90.49 Acquired absence of other specified parts of digestive tract; Z90.710 Acquired absence of both cervix and uterus; Z98.890 Other specified postprocedural states; Y92.89 Other specified places as the place of occurrence of the external cause
CPT/HCPCS: 96372; 99284; J1100